=== PATIENT | female | born 1985 | race African-American/Black ===

== ENCOUNTER 2022-12-28 17:17 | Emergency (ER) | payer OTHER, SELFPAY ==
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
--- NOTE | ~2022-12-28 | CT_ITS ---
Non-contrast Head CT History: Headache Technique: Axial non-contrast imaging of the brain was performed. Dose reduction technique was used on this scan by utilizing automated exposure control and iterative reconstruction technique. The dose -length product (DLP) was 681.00 mGy-cm. Findings: There is no evidence of intracranial hemorrhage, mass lesion, or acute infarct. Brain par enchyma appears normal. The ventricles and subarachnoid spaces are normal in size. The calvarium ap pears normal. The visualized paranasal sinuses and mastoid air cells are clear. Impression: No significant abnormality seen. Reviewed, dictated and finalized at location . Impression: No significant abnormality seen.
--- NOTE | ~2022-12-28 | CT_ITS ---
Noncontrast CT scan of the cervical spine Technique: Multiple contiguous axial [address] images of the cervical spine were obtained and rec onstructed in 2D sagittal and coronal planes on the acquisition scanner. Dose reduction technique was used on this scan by utilizing automated exposure control, adjustment of the mA and/or kV according to patient size. Clinical History: Pain Findings: No fractures or dislocations. Unremarkable visualized bony structures. The intervertebral disc spaces are preserved. No prevertebral soft tissue swelling. Impression: No fracture or subluxation of the cervical spine. Reviewed, dictated and finalized at location M. Impression: No fracture or subluxation of the cervical spine.
[2022-12-28 17:21] VITALS: BP 118/64; PULSE 100; RESP 16; TEMP 36.8; O2SAT 100
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
[2022-12-28] MEDS: MELOXICAM 7.5 MG TABLET PO (18:12)
[2022-12-28] MEDS: CYCLOBENZAPRINE HCL 5 MG TABLET PO (18:12)
--- NOTE | 2022-12-28 19:05 | PC.NURSE ---
Report received from LATRICE Britt. Assumed care of patient at this time.
--- NOTE | 2022-12-28 19:06 | PC.NURSE ---
Patient taken to CT at this time.
[2022-12-28 20:14] VITALS: BP 111/71; PULSE 85; RESP 16; TEMP 36.5; O2SAT 98
== END 2022-12-28 20:27 | disposition home or self-care (01) ==
PROVIDERS: Emergency Provider Physician Assistant
DX: M54.2 Cervicalgia (principal); R51.9 Headache, unspecified; M54.50 Low back pain, unspecified; V89.2XXA Person injured in unspecified motor-vehicle accident, traffic, initial encounter; Y92.488 Other paved roadways as the place of occurrence of the external cause
CPT/HCPCS: 70450; 72125; 72131; 81025; 99284; A9270